=== PATIENT | female | born 1980 | race Caucasian/White ===

== ENCOUNTER → 2019-03-07 08:32 | Outpatient (CLI) | payer OTHER, SELFPAY ==
[2019-03-07 08:57] LABS: WBC Urine None Seen (0-5/HPF)
[2019-03-07 09:22] LABS: Add Manual Diff / Slide Review NO; Basophils Absolute Auto 100 /uL (0-100); Eosinophils Absolute Auto 200 /uL (0-450); Eosinophils Percent Auto 2.6 % (2-4); Hematocrit 38.4 % (36-46); Hemoglobin 13.2 g/dL (12.0-16.0); Lymphocytes Absolute Auto 2000 /uL (1100-4500); Lymphocytes Percent Auto 27.2 % (25-40); Mean Corpuscular HGB Conc 34.4 % (30-36); Mean Corpuscular Hemoglobin 32.5 PG (26-34); Mean Corpuscular Volume 94.4 fL (80-100); Monocytes Absolute Auto 600 /uL (0-900); Monocytes Percent Auto 8.5 % (3-14); Neutrophils Absolute Auto 4400 /uL (1500-7000); Neutrophils Percent Auto 60.7 % (50-75); Platelet Count 210 X10^3/uL (150-400); Red Blood Cell Count 4.07 X10^6/uL (4.0-5.2); Red Cell Distribution Width 13.4 % (11.6-14.8); White Blood Cell Count 7.3 X10^3/uL (4.5-11.0)
[2019-03-07 10:09] LABS: Alanine Aminotransferase 12 IU/L (9-52); Albumin 4.3 g/dL (3.5-5.0); Albumin Globulin Ratio 1.5 (1.0-2.8); Alkaline Phosphatase 58 U/L (38-126); Aspartate Aminotransferase 23 IU/L (14-36); Bilirubin Total 0.5 mg/dL (0.2-1.3); Blood Urea Nitrogen 9 mg/dL (7-17); Calcium 9.1 mg/dL (8.4-10.2); Carbon Dioxide 29 mmol/L (22-32); Chloride 105 mmol/L (98-107); Cholesterol 183 mg/dL (140-199); Estimated Glomerular Filt Rate > 60.0 mL/min (>60); Globulin 2.8 g/dL (1.7-4.1); Glucose 91 mg/dL (70-100); HDL Cholesterol 41 mg/dL (40-60); HEMOLYSIS 17 (0-50); LDL Cholesterol Calculated 121 mg/dL (<100); Potassium 4.2 mmol/L (3.4-5.1); Sodium 140 mmol/L (137-145); Total Protein 7.1 g/dL (6.3-8.2); Triglycerides 107 mg/dL (35-150)
[2019-03-07 10:11] LABS: Appearance Urine UA CLEAR; Bilirubin Urine UA NEGATIVE (NEGATIVE); Color Urine UA YELLOW; Glucose Urine UA NEGATIVE (Negative); Ketones Urine UA NEGATIVE (NEGATIVE); Leukocyte Esterase Urine UA NEGATIVE (NEGATIVE); Nitrite Urine UA NEGATIVE (Negative); Occult Blood Urine UA NEGATIVE (Negative); Protein Urine UA NEGATIVE (Negative); Urobilinogen Urine UA 0.2 E.U./dL (0.2)
[2019-03-07 10:15] LABS: pH Urine UA 7.5 (4.5-8.0)
[2019-03-07 10:38] LABS: Thyroid Stimulating Hormone 5.46 uIU/mL (0.47-4.68)
[2019-03-07 10:40] LABS: RBC Urine 0-1/HPF (0-5/HPF); Squamous Epithelial Cell Urine 0-1 /HPF (0-5/HPF)
[2019-03-07 10:41] LABS: Bacteria Urine Few (2-10); Culture Indicated Urine Cult Not Indicated
== END ==
PROVIDERS: PCP Family Medicine; Visit Provider Family Medicine
DX: Z00.00 Encounter for general adult medical examination without abnormal findings (principal); Z13.220 Encounter for screening for lipoid disorders; Z13.29 Encounter for screening for other suspected endocrine disorder; Z13.6 Encounter for screening for cardiovascular disorders; Z79.899 Other long term (current) drug therapy; R39.89 Other symptoms and signs involving the genitourinary system
CPT/HCPCS: 36415; 80053; 80061; 81001; 84443; 85025

== ENCOUNTER → 2019-03-21 14:46 | Outpatient (CLI) | payer OTHER, SELFPAY ==
[2019-03-21 15:54] LABS: Free T3, Triiodothyronine Free 3.44 pg/mL (2.77-5.27); Free T4, Direct Thyroxine 0.81 ng/dL (0.78-2.19)
[2019-03-21 16:08] LABS: Thyroid Stimulating Hormone 1.95 uIU/mL (0.47-4.68)
== END ==
PROVIDERS: PCP Family Medicine; Visit Provider Family Medicine
DX: R79.89 Other specified abnormal findings of blood chemistry (principal)
CPT/HCPCS: 36415; 84439; 84443; 84481

== ENCOUNTER → 2019-04-05 16:57 | Outpatient (CLI) | payer OTHER, SELFPAY ==
--- NOTE | 2019-04-05 16:59 | DI.MG.S_ITS ---
BILATERAL DIGITAL SCREENING MAMMOGRAM 3D/2D WITH CAD: 04/05/2019 CLINICAL: Routine screening. Comparison is made to exam dated: 12/16/2014 mammogram - [facility]. The tissue of both breasts is heterogeneously dense. This may lower the sensitivity of mammography. Current study was also evaluated with a Computer Aided Detection (CAD) system. No significant masses, calcifications, or other findings are seen in either breast. There has been no significant interval change. IMPRESSION: NEGATIVE There is no mammographic evidence of malignancy. A 1 year screening mammogram is recommended. This exam was interpreted at Station ID: [id number]. NOTE: For mammograms, a report in lay terms will be sent to the patient. Approximately 15% of breast malignancies will not be visualized mammographically. In the management of a palpable breast mass, a negative mammogram must not discourage biopsy of a clinically suspicious lesion. Electronically Signed By: Matthew adams/christopher:04/06/2019 08:21:27 letter sent: Normal Exam ACR BI-RADS Category 1: Negative 3341F
== END ==
PROVIDERS: PCP Family Medicine; Visit Provider Family Medicine
DX: Z12.31 Encounter for screening mammogram for malignant neoplasm of breast (principal)
CPT/HCPCS: 77063; 77067

== ENCOUNTER → 2019-10-23 12:25 | Outpatient (CLI) | payer OTHER, SELFPAY ==
--- NOTE | 2019-10-23 12:26 | DI.RAD.S_ITS ---
PROCEDURE: FL UPPER GI W AIR INDICATIONS: Worsening GERD, IBS COMPARISON: , MG, MM SCREENING MAMMO BI, 04/05/2019, 17:34. FINDINGS: KUB: Preprocedural payroll consultant film demonstrates a normal bowel gas pattern. No suspicious abdominal calcifications. Visualized solid organ contours appear normal. Bony structures appear unremarkable. Esophagus: Esophageal mucosa is normal on air-contrast views. On single-contrast views, there is normal esophageal peristalsis. No strictures, extrinsic mass effects, or diverticula. Small sliding hiatal hernia. Mild gastroesophageal reflux. There is normal transit of a calibrated barium tablet through the esophagus. Stomach: The stomach is normally distensible, with normal rugal fold thickness. No mucosal masses or ulcers. Pylorus and duodenal bulb appear normal in morphology. Duodenal folds are normal in thickness as well. IMPRESSION: Small sliding hiatal hernia and mild gastroesophageal reflux. Dictated by: Dariel Potter M.D. on 10/23/2019 at 13:33 Approved by: Dariel Potter M.D. on 10/23/2019 at 13:34
== END ==
PROVIDERS: PCP Family Medicine; Referring Provider Family Medicine; Visit Provider Family Medicine
DX: K58.9 Irritable bowel syndrome, unspecified (principal); K21.9 Gastro-esophageal reflux disease without esophagitis; K44.9 Diaphragmatic hernia without obstruction or gangrene
CPT/HCPCS: 74246

== ENCOUNTER → 2019-11-27 14:34 | Outpatient (CLI) | payer OTHER, SELFPAY ==
[2019-12-07 06:36] LABS: Percent Free Testosterone 0.75 % (0.50-2.80); Testosterone Free 0.14 ng/dL (0.10-0.85); Testosterone Total 18.3 ng/dL (.)
== END ==
PROVIDERS: PCP Family Medicine; Referring Provider Obstetrics & Gynecology; Visit Provider Obstetrics & Gynecology
DX: R68.82 Decreased libido (principal)
CPT/HCPCS: 36415; 84402; 84403

== ENCOUNTER → 2020-08-19 07:15 | Outpatient (CLI) | payer OTHER, SELFPAY ==
[2020-08-19 07:59] LABS: Add Manual Diff / Slide Review NO; Basophils Absolute Auto 100 /uL (0-100); Basophils Percent Auto 1.3 % (0-2); Eosinophils Absolute Auto 300 /uL (0-450); Eosinophils Percent Auto 3.8 % (2-4); Hematocrit 38.3 % (36-46); Hemoglobin 12.8 g/dL (12.0-16.0); Lymphocytes Absolute Auto 1800 /uL (1100-4500); Lymphocytes Percent Auto 26.4 % (25-40); Mean Corpuscular HGB Conc 33.3 % (30-36); Mean Corpuscular Volume 93.1 fL (80-100); Monocytes Absolute Auto 600 /uL (0-900); Monocytes Percent Auto 9.5 % (3-14); Neutrophils Absolute Auto 3900 /uL (1500-7000); Platelet Count 284 X10^3/uL (150-400); Red Blood Cell Count 4.12 X10^6/uL (4.0-5.2); Red Cell Distribution Width 13.4 % (11.6-14.8); White Blood Cell Count 6.7 X10^3/uL (4.5-11.0)
[2020-08-19 08:23] LABS: Alanine Aminotransferase 21 IU/L (<35); Albumin 4.2 g/dL (3.5-5.0); Albumin Globulin Ratio 1.5 (1.0-2.8); Alkaline Phosphatase 64 U/L (38-126); Aspartate Aminotransferase 29 IU/L (14-36); BUN Creatinine Ratio 11.1 (6-22); Bilirubin Total 0.3 mg/dL (0.2-1.3); Blood Urea Nitrogen 8 mg/dL (7-17); Calcium 9.1 mg/dL (8.4-10.2); Carbon Dioxide 32 mmol/L (22-32); Chloride 105 mmol/L (98-107); Cholesterol 261 mg/dL (140-199); Estimated Glomerular Filt Rate > 60.0 mL/min (>60); Globulin 2.8 g/dL (1.7-4.1); Glucose 91 mg/dL (70-100); HDL Cholesterol 63 mg/dL (40-60); HEMOLYSIS < 15 (0-50); LDL Cholesterol Calculated 168 mg/dL (<100); Potassium 4.3 mmol/L (3.4-5.1); Sodium 140 mmol/L (137-145); Triglycerides 151 mg/dL (35-150)
[2020-08-19 08:53] LABS: TSH w/ Reflex to FT4 3.65 uIU/mL (0.47-4.68)
== END ==
PROVIDERS: PCP Family Medicine; Referring Provider Family Medicine; Visit Provider Family Medicine
DX: E78.5 Hyperlipidemia, unspecified (principal); F41.0 Panic disorder [episodic paroxysmal anxiety]; F41.1 Generalized anxiety disorder; F41.8 Other specified anxiety disorders; K21.9 Gastro-esophageal reflux disease without esophagitis; R53.83 Other fatigue
CPT/HCPCS: 36415; 80053; 80061; 84443; 85025

== ENCOUNTER → 2020-10-31 08:32 | Outpatient (CLI) | payer BC, SELFPAY ==
[2020-10-31 10:12] LABS: Free T4, Direct Thyroxine 0.27 ng/dL (0.78-2.19)
[2020-10-31 10:26] LABS: Thyroid Stimulating Hormone < 0.015 uIU/mL (0.47-4.68)
== END ==
PROVIDERS: PCP Family Medicine; Referring Provider Nurse Practitioner Psychiatric/Mental Health; Visit Provider Nurse Practitioner Psychiatric/Mental Health
DX: R53.83 Other fatigue (principal); R63.5 Abnormal weight gain
CPT/HCPCS: 36415; 84439; 84443

== ENCOUNTER → 2020-11-07 16:49 | Outpatient (CLI) | payer OTHER, SELFPAY ==
--- NOTE | 2020-11-07 16:51 | DI.MG.S_ITS ---
BILATERAL DIGITAL SCREENING MAMMOGRAM 3D/2D WITH CAD: 11/07/2020 CLINICAL: Routine screening. Comparison is made to exams dated: 04/05/2019 mammogram - [facility] and 12/16/2014 mammogram - [facility]. The tissue of both breasts is heterogeneously dense. This may lower the sensitivity of mammography. Current study was also evaluated with a Computer Aided Detection (CAD) system. No significant masses, calcifications, or other findings are seen in either breast. There has been no significant interval change. IMPRESSION: NEGATIVE There is no mammographic evidence of malignancy. A 1 year screening mammogram is recommended. This exam was interpreted at Station ID: [id number]. NOTE: For mammograms, a report in lay terms will be sent to the patient. Approximately 15% of breast malignancies will not be visualized mammographically. In the management of a palpable breast mass, a negative mammogram must not discourage biopsy of a clinically suspicious lesion. Electronically Signed By: Sher hendrix/christopher:11/10/2020 09:00:29 letter sent: Normal Exam ACR BI-RADS Category 1: Negative 3341F
== END ==
PROVIDERS: PCP Family Medicine; Referring Provider Family Medicine; Visit Provider Family Medicine
DX: Z12.31 Encounter for screening mammogram for malignant neoplasm of breast (principal)
CPT/HCPCS: 77063; 77067

== ENCOUNTER → 2020-11-26 10:42 | Outpatient (CLI) | payer OTHER, SELFPAY ==
[2020-11-26 11:07] LABS: COVID19 -Nasal RAPID Negative (Negative)
== END ==
PROVIDERS: PCP Family Medicine; Visit Provider Physician Assistant
DX: R09.81 Nasal congestion (principal); R42 Dizziness and giddiness
CPT/HCPCS: 87635

== ENCOUNTER → 2021-03-02 07:17 | Outpatient (CLI) | payer OTHER, SELFPAY ==
[2021-03-02 09:02] LABS: Free T4, Direct Thyroxine 0.31 ng/dL (0.78-2.19)
[2021-03-02 09:15] LABS: Thyroid Stimulating Hormone 1.02 uIU/mL (0.47-4.68)
== END ==
PROVIDERS: PCP Family Medicine; Referring Provider Naturopath; Visit Provider Naturopath
DX: E03.9 Hypothyroidism, unspecified (principal)
CPT/HCPCS: 36415; 84439; 84443; 84481

== ENCOUNTER → 2021-04-21 07:43 | Outpatient (CLI) | payer OTHER, SELFPAY ==
[2021-04-21 09:42] LABS: Free T3, Triiodothyronine Free 4.52 pg/mL (2.77-5.27); Free T4, Direct Thyroxine 0.94 ng/dL (0.78-2.19)
[2021-04-21 09:56] LABS: Thyroid Stimulating Hormone 1.11 uIU/mL (0.47-4.68)
== END ==
PROVIDERS: PCP Family Medicine; Referring Provider Naturopath; Visit Provider Naturopath
DX: E03.9 Hypothyroidism, unspecified (principal)
CPT/HCPCS: 36415; 84439; 84443; 84481

== ENCOUNTER → 2021-08-19 08:19 | Outpatient (CLI) | payer OTHER, SELFPAY ==
[2021-08-19 09:23] LABS: Cholesterol 202 mg/dL (140-199); HDL Cholesterol 57 mg/dL (40-60); LDL Cholesterol Calculated 128 mg/dL (<100); Triglycerides 83 mg/dL (35-150)
[2021-08-19 09:39] LABS: Free T3, Triiodothyronine Free 4.53 pg/mL (2.77-5.27); Free T4, Direct Thyroxine 0.91 ng/dL (0.78-2.19)
[2021-08-19 09:52] LABS: Thyroid Stimulating Hormone 0.842 uIU/mL (0.47-4.68)
== END ==
PROVIDERS: PCP Family Medicine; Referring Provider Naturopath; Visit Provider Naturopath
DX: E03.9 Hypothyroidism, unspecified (principal); E78.5 Hyperlipidemia, unspecified
CPT/HCPCS: 36415; 80061; 84439; 84443; 84481

== ENCOUNTER → 2022-01-20 11:26 | Outpatient (CLI) | payer OTHER, SELFPAY ==
--- NOTE | 2022-01-20 | DI.MG.S_ITS ---
BILATERAL DIGITAL SCREENING MAMMOGRAM 3D/2D WITH CAD: 01/20/2022 CLINICAL: Routine screening. Baseline exam. Comparison is made to exams dated: 04/05/2019 mammogram - [facility], 12/16/2014 mammogram - [facility], and 11/07/2020 mammogram - [facility]. The tissue of both breasts is heterogeneously dense. This may lower the sensitivity of mammography. Current study was also evaluated with a Computer Aided Detection (CAD) system. No significant masses, calcifications, or other findings are seen in either breast. There has been no significant interval change. IMPRESSION: NEGATIVE There is no mammographic evidence of malignancy. A 1 year screening mammogram is recommended. Based on the Tyrer Cuzick model (a risk assessment model) the patient's lifetime risk is 6.2% and her 10 year risk is 0.9%. According to the ACR, ACS, and NCCN guidelines, an annual breast MRI exam along with mammogram is recommended if the patient's lifetime risk is 20% or greater. This exam was interpreted at Station ID: [id number]. NOTE: For mammograms, a report in lay terms will be sent to the patient. Approximately 15% of breast malignancies will not be visualized mammographically. In the management of a palpable breast mass, a negative mammogram must not discourage biopsy of a clinically suspicious lesion. Electronically Signed By: Sher hendrix/christopher:01/20/2022 12:58:08 letter sent: Normal Exam ACR BI-RADS Category 1: Negative 3341F
== END ==
PROVIDERS: PCP Naturopath; Referring Provider Naturopath; Visit Provider Naturopath
DX: Z12.31 Encounter for screening mammogram for malignant neoplasm of breast (principal)
CPT/HCPCS: 77063; 77067

== ENCOUNTER → 2022-02-23 16:33 | Outpatient (CLI) | payer OTHER, SELFPAY ==
[2022-02-23 18:00] LABS: Add Manual Diff / Slide Review NO; Basophils Absolute Auto 100 /uL (0-100); Eosinophils Absolute Auto 100 /uL (0-450); Eosinophils Percent Auto 1.9 % (2-4); Hematocrit 36.3 % (36-46); Hemoglobin 12.5 g/dL (12.0-16.0); Lymphocytes Absolute Auto 1800 /uL (1100-4500); Lymphocytes Percent Auto 25.4 % (25-40); Mean Corpuscular HGB Conc 34.4 % (30-36); Mean Corpuscular Hemoglobin 30.8 PG (26-34); Mean Corpuscular Volume 89.5 fL (80-100); Monocytes Absolute Auto 400 /uL (0-900); Monocytes Percent Auto 6.1 % (3-14); Neutrophils Absolute Auto 4500 /uL (1500-7000); Neutrophils Percent Auto 65.6 % (50-75); Platelet Count 264 X10^3/uL (150-400); Red Blood Cell Count 4.05 X10^6/uL (4.0-5.2); Red Cell Distribution Width 13.6 % (11.6-14.8); White Blood Cell Count 6.9 X10^3/uL (4.5-11.0)
[2022-02-23 18:11] LABS: Alanine Aminotransferase 11 IU/L (<35); Albumin 4.3 g/dL (3.5-5.0); Albumin Globulin Ratio 1.4 (1.0-2.8); Alkaline Phosphatase 77 U/L (38-126); Aspartate Aminotransferase 19 IU/L (14-36); BUN Creatinine Ratio 9.2 (6-22); Bilirubin Total 0.3 mg/dL (0.2-1.3); Blood Urea Nitrogen 7 mg/dL (7-17); Calcium 8.7 mg/dL (8.4-10.2); Carbon Dioxide 28 mmol/L (22-32); Chloride 105 mmol/L (98-107); Estimated Glomerular Filt Rate > 60 mL/min (>60); Globulin 3.1 g/dL (1.7-4.1); Glucose 85 mg/dL (70-100); HEMOLYSIS < 15 (0-50); Potassium 3.8 mmol/L (3.4-5.1); Sodium 140 mmol/L (137-145); Total Protein 7.4 g/dL (6.3-8.2)
[2022-02-23 18:53] LABS: Free T4, Direct Thyroxine 0.86 ng/dL (0.78-2.19)
[2022-02-23 19:07] LABS: Thyroid Stimulating Hormone 1.18 uIU/mL (0.47-4.68)
[2022-02-26 12:36] LABS: Lamotrigine Lamictal 1.2 ug/mL (2.0-20.0)
== END ==
PROVIDERS: PCP Naturopath; Referring Provider Psychiatry & Neurology Psychiatry; Visit Provider Psychiatry & Neurology Psychiatry
DX: F33.1 Major depressive disorder, recurrent, moderate (principal); F41.0 Panic disorder [episodic paroxysmal anxiety]; F41.1 Generalized anxiety disorder; Z79.899 Other long term (current) drug therapy; Z51.81 Encounter for therapeutic drug level monitoring
CPT/HCPCS: 36415; 80053; 80175; 84439; 84443; 85025

== ENCOUNTER → 2022-07-19 08:03 | Outpatient (CLI) | payer OTHER, SELFPAY ==
[2022-07-22 15:15] LABS: Lamotrigine Lamictal 7.1 ug/mL (2.0-20.0)
== END ==
PROVIDERS: PCP Naturopath; Referring Provider Psychiatry & Neurology Psychiatry; Visit Provider Psychiatry & Neurology Psychiatry
DX: Z79.899 Other long term (current) drug therapy (principal)
CPT/HCPCS: 36415; 80175

== ENCOUNTER → 2022-08-19 07:10 | Outpatient (CLI) | payer OTHER, SELFPAY ==
[2022-08-19 08:27] LABS: Add Manual Diff / Slide Review NO; Basophils Absolute Auto 100 /uL (0-100); Basophils Percent Auto 1.3 % (0-2); Eosinophils Absolute Auto 200 /uL (0-450); Eosinophils Percent Auto 3.1 % (2-4); Hematocrit 36.1 % (36-46); Hemoglobin 12.1 g/dL (12.0-16.0); Lymphocytes Absolute Auto 1700 /uL (1100-4500); Lymphocytes Percent Auto 24.4 % (25-40); Mean Corpuscular HGB Conc 33.5 % (30-36); Mean Corpuscular Hemoglobin 30.3 PG (26-34); Mean Corpuscular Volume 90.3 fL (80-100); Monocytes Absolute Auto 600 /uL (0-900); Monocytes Percent Auto 8.8 % (3-14); Neutrophils Absolute Auto 4300 /uL (1500-7000); Neutrophils Percent Auto 62.4 % (50-75); Platelet Count 278 X10^3/uL (150-400); Red Cell Distribution Width 13.4 % (11.6-14.8); White Blood Cell Count 6.9 X10^3/uL (4.5-11.0)
[2022-08-19 08:46] LABS: Alanine Aminotransferase 17 IU/L (<35); Albumin 3.8 g/dL (3.5-5.0); Albumin Globulin Ratio 1.6 (1.0-2.8); Alkaline Phosphatase 67 U/L (38-126); Aspartate Aminotransferase 21 IU/L (14-36); BUN Creatinine Ratio 10.5 (6-22); Bilirubin Total 0.2 mg/dL (0.2-1.3); Blood Urea Nitrogen 8 mg/dL (7-17); Calcium 8.5 mg/dL (8.4-10.2); Carbon Dioxide 27 mmol/L (22-32); Chloride 107 mmol/L (98-107); Cholesterol 196 mg/dL (140-199); Estimated Glomerular Filt Rate > 60 mL/min (>60); Globulin 2.4 g/dL (1.7-4.1); Glucose 85 mg/dL (70-100); HDL Cholesterol 61 mg/dL (40-60); HEMOLYSIS < 15 (0-50); LDL Cholesterol Calculated 120 mg/dL (<100); Potassium 3.9 mmol/L (3.4-5.1); Sodium 140 mmol/L (137-145); Total Protein 6.2 g/dL (6.3-8.2); Triglycerides 74 mg/dL (35-150)
[2022-08-19 09:01] LABS: Free T3, Triiodothyronine Free 2.96 pg/mL (2.77-5.27); Free T4, Direct Thyroxine 0.85 ng/dL (0.78-2.19)
== END ==
PROVIDERS: PCP Naturopath; Referring Provider Naturopath; Visit Provider Naturopath
DX: Z00.00 Encounter for general adult medical examination without abnormal findings (principal); E03.9 Hypothyroidism, unspecified
CPT/HCPCS: 36415; 80053; 80061; 84439; 84443; 84481; 85025

== ENCOUNTER → 2022-09-01 09:07 | Outpatient (CLI) | payer OTHER, SELFPAY ==
[2022-09-01 11:37] LABS: Prolactin 10.8 ng/mL (3.0-18.6)
[2022-09-01 11:51] LABS: Estradiol, Total 36.5 pg/mL
== END ==
PROVIDERS: PCP Naturopath; Referring Provider Naturopath; Visit Provider Naturopath
DX: N64.4 Mastodynia (principal); Z79.890 Hormone replacement therapy
CPT/HCPCS: 36415; 82670; 84146

== ENCOUNTER → 2022-09-29 07:48 | Outpatient (CLI) | payer OTHER, SELFPAY ==
[2022-09-29 08:35] LABS: Lithium 0.7 mmol/L (0.6-1.2)
== END ==
PROVIDERS: PCP Naturopath; Referring Provider Psychiatry & Neurology Psychiatry; Visit Provider Psychiatry & Neurology Psychiatry
DX: F31.9 Bipolar disorder, unspecified (principal); Z79.899 Other long term (current) drug therapy
CPT/HCPCS: 36415; 80178

== ENCOUNTER → 2022-10-15 09:38 | Outpatient (CLI) | payer OTHER, SELFPAY ==
--- NOTE | 2022-10-15 | DI.MG.S_ITS ---
UNILATERAL LEFT DIGITAL DIAGNOSTIC MAMMOGRAM 3D/2D: 10/15/2022 CLINICAL: Left breast pain, CBE done by provider. Comparison is made to exams dated: 01/20/2022 mammogram, 11/07/2020 mammogram, 04/05/2019 mammogram - [facility], and 12/16/2014 mammogram - [facility]. The left breast is heterogeneously dense, which may obscure small masses (category c / 51-75% glandular tissue). No significant masses, calcifications, or other findings are seen in the breast. IMPRESSION: NEGATIVE There is no mammographic abnormality seen in the left breast to correspond with the intermittently palpable nodules and intermittent diffuse pain (neither of which the patient has today), however, clinical followup is recommended. There is no mammographic evidence of malignancy. A 1 year screening mammogram is recommended. Future imaging is recommended as follows: 01/21/2023 screening mammogram. Based on the Tyrer Cuzick model (a risk assessment model) the patient's lifetime risk is 6.2% and her 10 year risk is 1.0%. According to the ACR, ACS, and NCCN guidelines, an annual breast MRI exam along with mammogram is recommended if the patient's lifetime risk is 20% or greater. This exam was interpreted at Station ID: [id number]. NOTE: For mammograms, a report in lay terms will be sent to the patient. Approximately 15% of breast malignancies will not be visualized mammographically. In the management of a palpable breast mass, a negative mammogram must not discourage biopsy of a clinically suspicious lesion. Electronically Signed By: Danielle guillaume/:10/15/2022 10:02:18 letter sent: Normal Exam ACR BI-RADS Category 1: Negative 3341F
== END ==
PROVIDERS: PCP Naturopath; Referring Provider Naturopath; Visit Provider Naturopath
DX: N63.0 Unspecified lump in unspecified breast (principal); N63.20 Unspecified lump in the left breast, unspecified quadrant
CPT/HCPCS: 77065; G0279

== ENCOUNTER → 2023-02-02 09:50 | Outpatient (CLI) | payer BC, OTHER, SELFPAY ==
--- NOTE | 2023-02-02 09:52 | DI.MG.S_ITS ---
BILATERAL DIGITAL SCREENING MAMMOGRAM 3D/2D WITH CAD: 02/02/2023 CLINICAL: Routine screening. Comparison is made to exams dated: 01/20/2022 mammogram, 11/07/2020 mammogram - [facility], and 12/16/2014 mammogram - [facility]. There are scattered areas of fibroglandular density in both breasts (category b / 25%-50% glandular tissue). Current study was also evaluated with a Computer Aided Detection (CAD) system. No significant masses, calcifications, or other findings are seen in either breast. There has been no significant interval change. IMPRESSION: NEGATIVE There is no mammographic evidence of malignancy. A 1 year screening mammogram is recommended. Future imaging is recommended as follows: 10/16/2023 screening mammogram. Based on the Tyrer Cuzick model (a risk assessment model) the patient's lifetime risk is 4.1% and her 10 year risk is 0.7%. According to the ACR, ACS, and NCCN guidelines, an annual breast MRI exam along with mammogram is recommended if the patient's lifetime risk is 20% or greater. This exam was interpreted at Station ID: [id number]. NOTE: For mammograms, a report in lay terms will be sent to the patient. Approximately 15% of breast malignancies will not be visualized mammographically. In the management of a palpable breast mass, a negative mammogram must not discourage biopsy of a clinically suspicious lesion. Electronically Signed By: Maggie mack/christopher:02/02/2023 12:07:44 letter sent: Normal Exam ACR BI-RADS Category 1: Negative 3341F
== END ==
PROVIDERS: PCP Naturopath; Referring Provider Naturopath; Visit Provider Naturopath
DX: Z12.31 Encounter for screening mammogram for malignant neoplasm of breast (principal)
CPT/HCPCS: 77063; 77067

== ENCOUNTER 2023-05-21 16:13 | Emergency (ER) | payer BC, OTHER, SELFPAY ==
[2023-05-21 16:15] VITALS: BP 126/68; PULSE 82; RESP 20; TEMP 36.7; O2SAT 100; BMI 24.1
--- NOTE | 2023-05-21 16:30 | ED.ASTHMA ---
HPI - Asthma <Shamika Sharma PA-C - Last Filed: 05/21/23 18:19> General Chief Complaint: Shortness of Breath/Dyspnea Stated Complaint: dizzy/difficult breathing/HX of asthma Time Seen by Provider: 05/21/23 16:30 Source: patient Mode of arrival: Ambulatory History of Present Illness HPI Narrative: 43-year-old female with very remote history of asthma as a child, history anxiety, who presents for over 1 week of shortness of breath what seems to be worsening. She had recently been started on a beta huseyin as an adjunct therapy for her anxiety when the symptoms 1st began. She stopped taking the medication as directed by her doctor, and seemed to improve for a bit, but then the symptoms resumed. She was seen in an urgent clinic about a week ago where she had an EKG and chest x-ray and was told everything was ?normal?. She was recently prescribed a Ventolin inhaler which she is been using a few times a day that seems to give her some relief but it does not last for long. She describes her symptoms as chest tightness difficulty moving her air. It is worse with activity and better with rest though she still feels uncomfortable when she sitting. She is been on a 3 drug cocktail for her anxiety that she says has been very effective in general. She does not feel that these symptoms are related to anxiety though they do make her feel more anxious. She is had very minimal runny nose but no other significant URI symptoms. She denies fever, chest pain, abdominal pain, nausea vomiting, or any symptoms. Related Data Home Medications Medication Instructions Recorded Confirmed levothyroxine 25 mcg capsule 25 mcg PO DAILY 03/03/22 04/11/23 estradiol 1 mg tablet See Rx Instructions .Route .COMPLEX 03/31/22 04/11/23 liothyronine 5 mcg tablet 10 mcg PO DAILY 01/19/23 04/11/23 Previous Rx's Medication Instructions Recorded montelukast 10 mg tablet 10 mg PO DAILY #30 tabs 08/12/21 progesterone micronized 200 mg 200 mg PO BEDTIME surgical 06/03/22 capsule menopause #30 caps prazosin 1 mg capsule 3 mg (3 x 1 mg) PO BEDTIME 12/17/22 Nightmares #270 caps bupropion HCl 150 mg 24 hr tablet, 300 mg (2 x 150 mg) PO QAM #180 12/22/22 extended release tabs lithium carbonate 300 mg capsule 300 mg PO BEDTIME #30 caps 01/19/23 lamotrigine 300 mg tablet,extended 300 mg PO DAILY #30 tabs 04/04/23 release 24 hr propranolol 10 mg tablet 20 mg (2 x 10 mg) PO TID #180 tabs 04/11/23 trazodone 50 mg tablet 100 mg (2 x 50 mg) PO BEDTIME PRN 05/16/23 insomnia #60 tabs Allergies Allergy/AdvReac Type Severity Reaction Status Date / Time adhesive AdvReac Mild Rash Verified 05/21/23 16:19 omeprazole AdvReac Rash Verified 05/21/23 16:19 pantoprazole AdvReac Rash Verified 05/21/23 16:19 Patient History <Shamika Sharma PA-C - Last Filed: 05/21/23 18:19> Medical History Acute sinusitis Anxiety Asthma Depression Eczema (~2013) GERD (gastroesophageal reflux disease) Headache Hyperlipidemia Irregular menstrual cycle Irritable bowel disease Irritable bowel syndrome (~2010) Ovarian cyst Painful menstrual periods Vaginal delivery Well adult exam Surgical History Anesthesia History of hysterectomy (~2010) History of oophorectomy (~2010) Social History Smoking Status: Former smoker Tobacco: How many years used: 10 quit status: has quit before second hand exposure: No alcohol intake: current substance use type: marijuana Smoking Status: Former smoker alcohol intake frequency: other Substance Use Type: marijuana Exam <Shamika Sharma PA-C - Last Filed: 05/21/23 18:19> Narrative Exam Narrative: Const General: cooperative, healthy appearing, appears tachypneic and anxious. HENMT Head: normal to inspection and normocephalic Ears: hearing grossly normal bilaterally and external ears normal Face and sinus: normal facial exam Eyes General: appearance normal, both eyes and all related structures Visual Gtz: normal visual gtz by confrontation Neck Neck: normal visual inspection Chest Chest: Heart regular rate and rhythm without murmurs rubs or gallops. Resp Effort mildly labored, lungs are clear to auscultation in all gtz. No wheezes rales or rhonchi. Musc Cervical Spine: normal cervical lordosis Thoracic/Lumbar Spine: thoracic and lumbar spine normal to inspection Other: Neuro: Grossly intack Initial Vital Signs Initial Vital Signs: Vital Signs Temperature 98.1 F 05/21/23 16:15 Pulse Rate 82 05/21/23 16:15 Respiratory Rate 20 05/21/23 16:15 Blood Pressure 126/68 05/21/23 16:15 Pulse Oximetry 100 05/21/23 16:15 Oxygen Delivery Method Room Air 05/21/23 16:15 <Marty Salmon DO - Last Filed: 05/22/23 07:02> Initial Vital Signs Initial Vital Signs: Vital Signs Temperature 98.1 F 05/21/23 16:15 Pulse Rate 82 05/21/23 16:15 Respiratory Rate 20 05/21/23 16:15 Blood Pressure 126/68 05/21/23 16:15 Pulse Oximetry 100 05/21/23 16:15 Oxygen Delivery Method Room Air 05/21/23 16:15 Procedures <Shamika Sharma PA-C - Last Filed: 05/21/23 18:19> [facility] Procedure Name of Procedure: Duo-Neb Course <Shamika Sharma PA-C - Last Filed: 05/21/23 18:19> Orders Ordered: Discontinued Medications Albuterol/Ipratropium (Albuterol/Ipratropium 3 Ml Ampul) 3 ml INH NOW ONE Stop: 05/21/23 16:30 Last Admin: 05/21/23 16:33 Dose: 3 ml Documented By: CELIA Reevaluation(s) Reevaluation #1: After nebulizer treatment patient fell jittery but describes her chest tightness feeling improved. Her lung sounds are still clear and oxygen saturation is still 100% on room air Vital Signs Vital signs: Vital Signs - 8 hr 05/21/23 16:15 05/21/23 16:34 Temperature 98.1 F Pulse Rate 82 85 Respiratory Rate 20 14 Blood Pressure 126/68 Pulse Oximetry 100 100 Oxygen Delivery Method Room Air Room Air <DO Noemi Renee Last Filed: 05/22/23 07:02> Orders Ordered: Discontinued Medications Albuterol/Ipratropium (Albuterol/Ipratropium 3 Ml Ampul) 3 ml INH NOW ONE Stop: 05/21/23 16:30 Last Admin: 12/02/23 16:33 Dose: 3 ml Documented By: CELIA Vital Signs Vital signs: Vital Signs - 8 hr 05/21/23 16:15 05/21/23 16:34 Temperature 98.1 F Pulse Rate 82 85 Respiratory Rate 20 14 Blood Pressure 126/68 Pulse Oximetry 100 100 Oxygen Delivery Method Room Air Room Air MDM - Asthma <Shamika Sharma PA-C - Last Filed: 05/21/23 18:19> Lab Data 05/21/23 16:40 05/21/23 16:40 Labs: Lab Results 05/21/23 Range/Units 16:40 WBC 6.8 (4.5-11.0) X10^3/uL RBC 4.33 (4.0-5.2) X10^6/uL Hgb 13.0 (12.0-16.0) g/dL Hct 38.8 (36-46) % MCV 89.6 (80-100) fL MCH 30.1 (26-34) PG MCHC 33.6 (30-36) % RDW 12.7 (11.6-14.8) % Plt Count 348 (150-400) X10^3/uL Neut % (Auto) 54.1 (50-75) % Lymph % (Auto) 33.2 (25-40) % Elliott % (Auto) 9.5 (3-14) % Eos % (Auto) 2.1 (2-4) % Baso % (Auto) 1.1 (0-2) % Neut # (Auto) 3700 (9388-5942) /uL Lymph # (Auto) 2300 (3225-7714) /uL Elliott # (Auto) 700 (0-900) /uL Eos # (Auto) 100 (0-450) /uL Baso # (Auto) 100 (0-100) /uL Sodium 138 (137-145) mmol/L Potassium 3.9 (3.4-5.1) mmol/L Chloride 104 (98-107) mmol/L Carbon Dioxide 22 (22-32) mmol/L BUN 9 (7-17) mg/dL Creatinine 0.74 (0.52-1.04) mg/dL Estimated GFR > 60 (>60) mL/min BUN/Creatinine Ratio 12.2 (6-22) Glucose 98 (70-100) mg/dL Calcium 10.2 (8.4-10.2) mg/dL Total Bilirubin 0.5 (0.2-1.3) mg/dL AST 23 (14-36) IU/L ALT 17 (<35) IU/L Alkaline Phosphatase 78 (38-126) U/L Total Protein 7.6 (6.3-8.2) g/dL Albumin 4.6 (3.5-5.0) g/dL Globulin 3.0 (1.7-4.1) g/dL Albumin/Globulin Ratio 1.5 (1.0-2.8) TSH 1.61 (0.47-4.68) uIU/mL [place] 0.3 L (0.6-1.2) mmol/L MDM Narrative Medical decision making narrative: This is a 43-year-old female with a significant history for anxiety, depression, who is followed by a psychiatrist. She takes multiple medications for her condition and recently was started on propranolol as per part of a regimen for possible bipolar disorder prior to the onset of her shortness of breath symptoms. Her doctor suggested she stop the beta huseyin after which she felt a bit better. But then she still had sensations of shortness of breath especially with ambulating or any kind of activity. Her symptoms sound pulmonary however given her normal lung exam, her repeat oxygen saturations of 100% and no recent history of asthma since she was a child, I wonder if this is a manifestation of some other process. After further discussion and her saying that she felt some relief from her DuoNeb and the albuterol inhaler that she as at home I have encouraged her to continue to use that on a as needed basis until she can see her primary or follow up with her psychiatrist. Patient expresses understanding this assessment and agrees with the plan. This patient was discussed with who also agrees with the plan. <Marty Salmon, DO - Last Filed: 05/22/23 07:02> Lab Data Labs: Lab Results 05/21/23 Range/Units 16:40 WBC 6.8 (4.5-11.0) X10^3/uL RBC 4.33 (4.0-5.2) X10^6/uL Hgb 13.0 (12.0-16.0) g/dL Hct 38.8 (36-46) % MCV 89.6 (80-100) fL MCH 30.1 (26-34) PG MCHC 33.6 (30-36) % RDW 12.7 (11.6-14.8) % Plt Count 348 (150-400) X10^3/uL Neut % (Auto) 54.1 (50-75) % Lymph % (Auto) 33.2 (25-40) % Elliott % (Auto) 9.5 (3-14) % Eos % (Auto) 2.1 (2-4) % Baso % (Auto) 1.1 (0-2) % Neut # (Auto) 3700 (2948-5498) /uL Lymph # (Auto) 2300 (8254-0245) /uL Elliott # (Auto) 700 (0-900) /uL Eos # (Auto) 100 (0-450) /uL Baso # (Auto) 100 (0-100) /uL Sodium 138 (137-145) mmol/L Potassium 3.9 (3.4-5.1) mmol/L Chloride 104 (98-107) mmol/L Carbon Dioxide 22 (22-32) mmol/L BUN 9 (7-17) mg/dL Creatinine 0.74 (0.52-1.04) mg/dL Estimated GFR > 60 (>60) mL/min BUN/Creatinine Ratio 12.2 (6-22) Glucose 98 (70-100) mg/dL Calcium 10.2 (8.4-10.2) mg/dL Total Bilirubin 0.5 (0.2-1.3) mg/dL AST 23 (14-36) IU/L ALT 17 (<35) IU/L Alkaline Phosphatase 78 (38-126) U/L Total Protein 7.6 (6.3-8.2) g/dL Albumin 4.6 (3.5-5.0) g/dL Globulin 3.0 (1.7-4.1) g/dL Albumin/Globulin Ratio 1.5 (1.0-2.8) TSH 1.61 (0.47-4.68) uIU/mL [place] 0.3 L (0.6-1.2) mmol/L Discharge Plan Departure Patient Disposition: Home Clinical Impression: Shortness of breath Activity Restrictions/Additional Instructions: Your oxygen saturation and lung sounds are normal in fact your lungs sound very good. Your blood work was all within normal limits with the exception of a slightly subtherapeutic level of lithium in your system. However I doubt this is the source of your symptoms. I am not sure your symptoms are from your lungs though I certainly think you should follow-up with your primary care provider to consider pulmonary function testing. If you do feel symptomatic relief from using your inhaler you can administer 2 inhalations every 4-6 hours as needed. I would not exceed 4 doses per day. If your symptoms worsen considerably please come back to the ER for re-evaluation. It was a pleasure to take care of you today Prescriptions: No Action propranolol 10 mg tablet 20 mg PO TID Qty: 180 3RF estradiol 1 mg tablet See Rx Instructions .ROUTE .COMPLEX Dose Instruction: TAKE 1 AND 1/2 TABLETS BY MOUTH DAILY Rx Instructions: TAKE 1 TABLET BY MOUTH DAILY liothyronine 5 mcg tablet 10 mcg PO DAILY lithium carbonate 300 mg capsule 300 mg PO BEDTIME Qty: 30 3RF montelukast 10 mg tablet 10 mg PO DAILY Qty: 30 0RF Rx Instructions: APPOINTMENT DUE FOR FURTHER REFILLS. 08/12/21 progesterone micronized 200 mg capsule 200 mg PO BEDTIME Qty: 30 12RF Rx Instructions: Take once daily. prazosin 1 mg capsule 3 mg PO BEDTIME Qty: 270 2RF bupropion HCl 150 mg tablet extended release 24 hr 300 mg PO QAM Qty: 180 1RF Rx Instructions: Take with food lamotrigine 300 mg tablet extended release 24hr 300 mg PO DAILY Qty: 30 2RF trazodone 50 mg tablet 100 mg PO BEDTIME PRN (Reason: insomnia) Qty: 60 2RF levothyroxine 25 mcg capsule 25 mcg PO DAILY Referrals: Kimberly Hampton ND [Primary Care Provider] - Stand Alone Forms: Patient Portal/API ED Sign-out <Marty Salmon DO - Last Filed: 05/22/23 07:02> Cosign ED Attending Greggature Attestation: Dr Salmon Co-Sign Statement: I was available for consultation during this patient's emergency department visit. This chart is signed by myself for administrative purposes only. I did not have direct contact with this patient during this visit. They were seen independently by the APC.
[2023-05-21] MEDS: ALBUTEROL/IPRATROPIUM 3 ML AMPUL INH (16:33)
[2023-05-21 16:34] VITALS: PULSE 85; RESP 14; O2SAT 100
[2023-05-21 16:48] LABS: Add Manual Diff / Slide Review NO; Basophils Absolute Auto 100 /uL (0-100); Basophils Percent Auto 1.1 % (0-2); Eosinophils Absolute Auto 100 /uL (0-450); Eosinophils Percent Auto 2.1 % (2-4); Hematocrit 38.8 % (36-46); Lymphocytes Absolute Auto 2300 /uL (1100-4500); Lymphocytes Percent Auto 33.2 % (25-40); Mean Corpuscular HGB Conc 33.6 % (30-36); Mean Corpuscular Hemoglobin 30.1 PG (26-34); Mean Corpuscular Volume 89.6 fL (80-100); Monocytes Absolute Auto 700 /uL (0-900); Monocytes Percent Auto 9.5 % (3-14); Neutrophils Absolute Auto 3700 /uL (1500-7000); Neutrophils Percent Auto 54.1 % (50-75); Platelet Count 348 X10^3/uL (150-400); Red Blood Cell Count 4.33 X10^6/uL (4.0-5.2); Red Cell Distribution Width 12.7 % (11.6-14.8); White Blood Cell Count 6.8 X10^3/uL (4.5-11.0)
[2023-05-21 16:59] LABS: Alanine Aminotransferase 17 IU/L (<35); Albumin 4.6 g/dL (3.5-5.0); Albumin Globulin Ratio 1.5 (1.0-2.8); Alkaline Phosphatase 78 U/L (38-126); Aspartate Aminotransferase 23 IU/L (14-36); BUN Creatinine Ratio 12.2 (6-22); Bilirubin Total 0.5 mg/dL (0.2-1.3); Blood Urea Nitrogen 9 mg/dL (7-17); Calcium 10.2 mg/dL (8.4-10.2); Carbon Dioxide 22 mmol/L (22-32); Chloride 104 mmol/L (98-107); Estimated Glomerular Filt Rate > 60 mL/min (>60); Glucose 98 mg/dL (70-100); HEMOLYSIS < 15 (0-50); Potassium 3.9 mmol/L (3.4-5.1); Sodium 138 mmol/L (137-145); Total Protein 7.6 g/dL (6.3-8.2)
[2023-05-21 17:43] LABS: Lithium 0.3 mmol/L (0.6-1.2)
[2023-05-21 17:49] LABS: Thyroid Stimulating Hormone 1.61 uIU/mL (0.47-4.68)
[2023-05-21 18:13] VITALS: BP 115/69; PULSE 85; RESP 16; O2SAT 100
== END 2023-05-21 18:15 | disposition home or self-care (01) ==
PROVIDERS: Emergency Provider Physician Assistant; PCP Naturopath
DX: R06.02 Shortness of breath (principal)
CPT/HCPCS: 36415; 80053; 80178; 84443; 85025; 94640; 99283

== ENCOUNTER → 2023-09-14 07:43 | Outpatient (CLI) | payer BC, OTHER, SELFPAY ==
[2023-09-14 08:37] LABS: Add Manual Diff / Slide Review NO; Basophils Absolute Auto 100 /uL (0-100); Basophils Percent Auto 0.9 % (0-2); Eosinophils Absolute Auto 200 /uL (0-450); Eosinophils Percent Auto 2.6 % (2-4); Hematocrit 37.5 % (36-46); Hemoglobin 12.6 g/dL (12.0-16.0); Lymphocytes Absolute Auto 1700 /uL (1100-4500); Lymphocytes Percent Auto 26.7 % (25-40); Mean Corpuscular HGB Conc 33.6 % (30-36); Mean Corpuscular Hemoglobin 30.8 PG (26-34); Mean Corpuscular Volume 91.7 fL (80-100); Monocytes Absolute Auto 700 /uL (0-900); Monocytes Percent Auto 10.4 % (3-14); Neutrophils Absolute Auto 3800 /uL (1500-7000); Neutrophils Percent Auto 59.4 % (50-75); Platelet Count 301 X10^3/uL (150-400); Red Blood Cell Count 4.09 X10^6/uL (4.0-5.2); Red Cell Distribution Width 12.7 % (11.6-14.8); White Blood Cell Count 6.4 X10^3/uL (4.5-11.0)
[2023-09-14 09:29] LABS: Lithium 0.4 mmol/L (0.6-1.2)
[2023-09-14 09:49] LABS: Alanine Aminotransferase 13 IU/L (<35); Albumin Globulin Ratio 1.6 (1.0-2.8); Alkaline Phosphatase 80 U/L (38-126); Aspartate Aminotransferase 19 IU/L (14-36); BUN Creatinine Ratio 11.3 (6-22); Bilirubin Total 0.5 mg/dL (0.2-1.3); Blood Urea Nitrogen 9 mg/dL (7-17); Calcium 9.4 mg/dL (8.4-10.2); Carbon Dioxide 26 mmol/L (22-32); Chloride 108 mmol/L (98-107); Cholesterol 207 mg/dL (140-199); Estimated Glomerular Filt Rate > 60 mL/min (>60); Globulin 2.5 g/dL (1.7-4.1); Glucose 90 mg/dL (70-100); HDL Cholesterol 69 mg/dL (40-60); HEMOLYSIS < 15 (0-50); LDL Cholesterol Calculated 127 mg/dL (<100); Potassium 4.5 mmol/L (3.4-5.1); Sodium 140 mmol/L (137-145); Total Protein 6.5 g/dL (6.3-8.2); Triglycerides 56 mg/dL (35-150)
[2023-09-14 10:01] LABS: Free T3, Triiodothyronine Free 3.22 pg/mL (2.77-5.27); Free T4, Direct Thyroxine 0.91 ng/dL (0.78-2.19)
[2023-09-14 10:12] LABS: Estradiol, Total 67.5 pg/mL
[2023-09-14 10:14] LABS: Thyroid Stimulating Hormone 1.24 uIU/mL (0.47-4.68)
== END ==
PROVIDERS: PCP Naturopath; Referring Provider Psychiatry & Neurology Psychiatry; Visit Provider Psychiatry & Neurology Psychiatry
DX: Z00.00 Encounter for general adult medical examination without abnormal findings (principal); E03.9 Hypothyroidism, unspecified; Z79.890 Hormone replacement therapy; N95.9 Unspecified menopausal and perimenopausal disorder; F31.9 Bipolar disorder, unspecified; Z79.899 Other long term (current) drug therapy; Z51.81 Encounter for therapeutic drug level monitoring
CPT/HCPCS: 36415; 80053; 80061; 80178; 82670; 84439; 84443; 84481; 85025

== ENCOUNTER → 2023-12-07 06:42 | Outpatient (CLI) | payer BC, OTHER, SELFPAY ==
[2023-12-07 08:32] LABS: Lithium 0.7 mmol/L (0.6-1.2)
== END ==
PROVIDERS: PCP Naturopath; Referring Provider Psychiatry & Neurology Psychiatry; Visit Provider Psychiatry & Neurology Psychiatry
DX: F31.9 Bipolar disorder, unspecified (principal); Z79.899 Other long term (current) drug therapy
CPT/HCPCS: 36415; 80178

== ENCOUNTER → 2024-01-25 10:08 | Outpatient (CLI) | payer BC, OTHER, SELFPAY ==
[2024-01-25 12:12] LABS: Estradiol, Total 74.2 pg/mL
== END ==
PROVIDERS: PCP Naturopath; Referring Provider Naturopath; Visit Provider Naturopath
DX: N95.9 Unspecified menopausal and perimenopausal disorder (principal); Z79.890 Hormone replacement therapy
CPT/HCPCS: 36415; 82670

== ENCOUNTER → 2024-02-07 14:29 | Outpatient (CLI) | payer BC, OTHER, SELFPAY ==
--- NOTE | 2024-02-07 14:30 | DI.MG.S_ITS ---
BILATERAL DIGITAL SCREENING MAMMOGRAM 3D/2D WITH CAD: 02/07/2024 CLINICAL: Routine screening. Comparison is made to exams dated: 02/02/2023 mammogram, 01/20/2022 mammogram, and 11/07/2020 mammogram - [facility]. There are scattered areas of fibroglandular density in both breasts (category b / 25%-50% glandular tissue). Current study was also evaluated with a Computer Aided Detection (CAD) system. No significant masses, calcifications, or other findings are seen in either breast. There has been no significant interval change. IMPRESSION: NEGATIVE There is no mammographic evidence of malignancy. A 1 year screening mammogram is recommended. Based on the Tyrer Cuzick model (a risk assessment model) the patient's lifetime risk is 4.0% and her 10 year risk is 0.7%. According to the ACR, ACS, and NCCN guidelines, an annual breast MRI exam along with mammogram is recommended if the patient's lifetime risk is 20% or greater. This exam was interpreted at Station ID: [id number]. NOTE: For mammograms, a report in lay terms will be sent to the patient. Approximately 15% of breast malignancies will not be visualized mammographically. In the management of a palpable breast mass, a negative mammogram must not discourage biopsy of a clinically suspicious lesion. Electronically Signed By: Leela Flores M.D., Ph.D. selene/christopher:02/08/2024 12:41:14 letter sent: Normal Exam ACR BI-RADS Category 1: Negative 3341F
== END ==
PROVIDERS: PCP Naturopath; Referring Provider Naturopath; Visit Provider Naturopath
DX: Z12.31 Encounter for screening mammogram for malignant neoplasm of breast (principal); R92.323 Mammographic fibroglandular density, bilateral breasts
CPT/HCPCS: 77063; 77067

== ENCOUNTER → 2024-05-23 10:39 | Outpatient (CLI) | payer BC, OTHER, SELFPAY ==
[2024-05-23 11:23] LABS: Add Manual Diff / Slide Review NO; Basophils Absolute Auto 100 /uL (0-100); Basophils Percent Auto 0.9 % (0-2); Eosinophils Absolute Auto 100 /uL (0-450); Eosinophils Percent Auto 2.2 % (2-4); Lymphocytes Absolute Auto 1300 /uL (1100-4500); Lymphocytes Percent Auto 21.9 % (25-40); Mean Corpuscular HGB Conc 33.3 % (30-36); Mean Corpuscular Hemoglobin 30.9 PG (26-34); Mean Corpuscular Volume 92.8 fL (80-100); Monocytes Absolute Auto 500 /uL (0-900); Monocytes Percent Auto 8.6 % (3-14); Neutrophils Absolute Auto 3900 /uL (1500-7000); Neutrophils Percent Auto 66.4 % (50-75); Platelet Count 322 X10^3/uL (150-400); Red Blood Cell Count 3.88 X10^6/uL (4.0-5.2); Red Cell Distribution Width 13.6 % (11.6-14.8); White Blood Cell Count 5.9 X10^3/uL (4.5-11.0)
[2024-05-23 11:52] LABS: Alanine Aminotransferase 15 IU/L (<35); Albumin 4.2 g/dL (3.5-5.0); Albumin Globulin Ratio 1.9 (1.0-2.8); Alkaline Phosphatase 73 U/L (38-126); Aspartate Aminotransferase 22 IU/L (14-36); Bilirubin Total 0.5 mg/dL (0.2-1.3); Blood Urea Nitrogen 8 mg/dL (7-17); Calcium 9.5 mg/dL (8.4-10.2); Carbon Dioxide 28 mmol/L (22-32); Chloride 106 mmol/L (98-107); Cholesterol 205 mg/dL (140-199); Estimated Glomerular Filt Rate > 60 mL/min (>60); Globulin 2.2 g/dL (1.7-4.1); Glucose 92 mg/dL (70-100); HDL Cholesterol 60 mg/dL (40-60); HEMOLYSIS < 15 (0-50); LDL Cholesterol Calculated 130 mg/dL (<100); Sodium 139 mmol/L (137-145); Total Protein 6.4 g/dL (6.3-8.2); Triglycerides 74 mg/dL (35-150)
[2024-05-23 12:05] LABS: Hemoglobin A1C% w Est Avg Glu 4.7 % (4.0-6.0)
[2024-05-23 12:12] LABS: Lithium 0.9 mmol/L (0.6-1.2)
[2024-05-23 12:36] LABS: Free T3, Triiodothyronine Free 2.86 pg/mL (2.77-5.27)
[2024-05-23 12:37] LABS: Free T4, Direct Thyroxine 0.68 ng/dL (0.78-2.19)
[2024-05-23 12:48] LABS: Thyroid Stimulating Hormone 0.494 uIU/mL (0.47-4.68)
== END ==
PROVIDERS: Referring Provider Psychiatry & Neurology Psychiatry; Visit Provider Psychiatry & Neurology Psychiatry
DX: F31.9 Bipolar disorder, unspecified (principal); L65.9 Nonscarring hair loss, unspecified; E78.5 Hyperlipidemia, unspecified; F90.9 Attention-deficit hyperactivity disorder, unspecified type; F41.1 Generalized anxiety disorder; G47.9 Sleep disorder, unspecified; Z79.899 Other long term (current) drug therapy
CPT/HCPCS: 36415; 80053; 80061; 80178; 83036; 84439; 84443; 84481; 85025

== ENCOUNTER → 2025-03-27 07:59 | Outpatient (CLI) | payer OTHER, SELFPAY ==
[2025-03-27 08:42] LABS: Add Manual Diff / Slide Review NO; Hematocrit 37.6 % (36-46); Hemoglobin 12.6 g/dL (12.0-16.0); Lymphocytes Absolute Auto 1500 /uL (1100-4500); Mean Corpuscular HGB Conc 33.6 % (30-36); Mean Corpuscular Hemoglobin 30.7 PG (26-34); Mean Corpuscular Volume 91.5 fL (80-100); Platelet Count 309 X10^3/uL (150-400)
[2025-03-27 08:59] LABS: Alanine Aminotransferase 14 IU/L (<35); Albumin 4.5 g/dL (3.5-5.0); Albumin Globulin Ratio 2.0 (1.0-2.8); Alkaline Phosphatase 60 U/L (38-126); Blood Urea Nitrogen 11 mg/dL (7-17); Calcium 10.0 mg/dL (8.4-10.2); Carbon Dioxide 27 mmol/L (22-32); Chloride 104 mmol/L (98-107); Estimated Glomerular Filt Rate > 60 mL/min (>60); Globulin 2.3 g/dL (1.7-4.1); Glucose 95 mg/dL (70-99); HEMOLYSIS < 15 (0-50); Lithium 1.0 mmol/L (0.6-1.2); Potassium 4.7 mmol/L (3.4-5.1); Sodium 140 mmol/L (137-145); Total Protein 6.8 g/dL (6.3-8.2)
[2025-03-27 09:30] LABS: TSH w/ Reflex to FT4 1.19 uIU/mL (0.47-4.68)
== END ==
PROVIDERS: PCP Family Medicine; Referring Provider Family Medicine; Visit Provider Psychiatry & Neurology Psychiatry
DX: F31.9 Bipolar disorder, unspecified (principal); Z79.899 Other long term (current) drug therapy
CPT/HCPCS: 36415; 80053; 80175; 80178; 84443; 85025